=== PATIENT | female | born 1945 | race Caucasian/White ===

== ENCOUNTER 2017-11-25 11:00 | Inpatient (IN) | payer OTHER ==
[~2017-11-25] VITALS: Ht 165.1 cm; Wt 80.7 kg
[~2017-11-25 11:00] MED LIST: CLARINEX PO; CLONAZEPAM0.5 MG/TAB PO; COZAAR50 MG PO; CRESTOR20 MG PO; NABUMETONE500 MG PO; PAXIL20 MG PO; PERCOCET 5/3251 TAB PO; PROTONIX40 M1 PO; SYNTHROID100 MCG PO; ZANTAC150 M3 PO
[2017-12-10] MEDS ORDERED: DOCUSATE SODIU100 MG PO (13:04)
[2017-12-10] MEDS ORDERED: CLONAZEPAM1 MG PO (13:06)
[2017-12-10] MEDS ORDERED: PERCOCET 5-3251 EACH PO (13:06)
== END 2017-12-10 14:28 | disposition home or self-care (01) | DRG 454 ==
LOC: O/R 12-09 04:30 → PED 12-09 04:30 → SURH 12-09 10:00 → PED 12-09 10:53 → SURH 12-09 11:00 → PED 12-10 14:28
PROVIDERS: Orthopaedic Surgery Orthopaedic Surgery of the Spine
PROC: 0RG2071 Fusion of 2 or more Cervical Vertebral Joints with Autologous Tissue Substitute, Posterior Approach, Posterior Column, Open Approach (ICD-10-PCS; 2017-12-09)
PROC: 0RT30ZZ Resection of Cervical Vertebral Disc, Open Approach (ICD-10-PCS; 2017-12-09)
PROC: 07DS3ZZ Extraction of Vertebral Bone Marrow, Percutaneous Approach (ICD-10-PCS; 2017-12-09)
PROC: 0RG20A0 Fusion of 2 or more Cervical Vertebral Joints with Interbody Fusion Device, Anterior Approach, Anterior Column, Open Approach (ICD-10-PCS; principal; 2017-12-09 10:00)
DX: M50.01 Cervical disc disorder with myelopathy, high cervical region (principal); M47.12 Other spondylosis with myelopathy, cervical region; I10 Essential (primary) hypertension; E03.8 Other specified hypothyroidism; E78.00 Pure hypercholesterolemia, unspecified

== ENCOUNTER 2018-12-02 11:43 | Inpatient (IN) | payer OTHER ==
[~2018-12-02] VITALS: Ht 165.1 cm; Wt 80.7 kg
[~2018-12-02 11:43] MED LIST changes: +CLONAZEPAM1 MG PO; +DOCUSATE SODIU100 MG PO; +PERCOCET 5-3251 EACH PO
[2019-01-06] MEDS ORDERED: SYNTHROID112 MCG (11:04)
[2019-01-06] MEDS ORDERED: CLONAZEPAM0.5 M1 (11:05)
[2019-01-06] MEDS ORDERED: ZOCOR80 MG PO (11:08)
[2019-01-06] MEDS ORDERED: TOPROL XL50 M1 (11:09)
== END 2019-01-21 15:55 | DRG 470 ==
LOC: O/R 01-19 06:40 → SURG 01-19 06:40
PROVIDERS: ADMIT Orthopaedic Surgery
PROC: 0SRC0J9 Replacement of Right Knee Joint with Synthetic Substitute, Cemented, Open Approach (ICD-10-PCS; principal; 2019-01-19 07:00)
DX: M17.11 Unilateral primary osteoarthritis, right knee (principal); D62 Acute posthemorrhagic anemia; I10 Essential (primary) hypertension; E03.8 Other specified hypothyroidism; E78.49 Other hyperlipidemia